=== PATIENT | female | born 1955 | race American Indian/Alaskan Native ===

== ENCOUNTER 2025-02-25 07:20 | Day surgery (SDC) | payer MEDICARE, MEDICAID, SELFPAY ==
[2025-02-24 11:43] VITALS: BMI 33.4
[2025-02-25] VITALS (14 sets, daily range): BP systolic 101–187; BP diastolic 68–102; PULSE 72–98; RESP 14–20; TEMP 36.2–36.7; O2SAT 93–100; BMI 32.3
[2025-02-25] MEDS: SODIUM CHLORIDE 0.9% 500 ML 500 ML 20 ML IV (09:22)
[2025-02-25] MEDS: BENZOCAINE 20% (Hurricaine) SPRAY 1 DOSE TOP (09:22)
[2025-02-25] MEDS: fentaNYL CIT INJ 50 mCg/ML AMP 2ML (ASD USE ONLY) IVP (09:37)
[2025-02-25] MEDS: LIDOCAINE JELLY 2% (Urojet) 10 ML TUBE TOP (09:37)
[2025-02-25] MEDS: MIDAZOLAM INJ 1 MG/ML VIAL 2 ML (ASD USE ONLY) 2 MG IVP (09:55)
== END 2025-02-25 11:13 | disposition home or self-care (01) ==
PROVIDERS: PCP Physician Assistant Medical; Referring Provider Specialist; Visit Provider Specialist
PROC: 0DBE8ZX Excision of Large Intestine, Via Natural or Artificial Opening Endoscopic, Diagnostic (ICD-10-PCS; CPT 45380; principal; 2025-02-25 09:00)
PROC: (CPT 43239; 2025-02-25 09:00)
DX: D12.2 Benign neoplasm of ascending colon (principal); R19.5 Other fecal abnormalities; D12.3 Benign neoplasm of transverse colon; D12.5 Benign neoplasm of sigmoid colon; K64.9 Unspecified hemorrhoids; K57.30 Diverticulosis of large intestine without perforation or abscess without bleeding; I10 Essential (primary) hypertension; Z79.899 Other long term (current) drug therapy
CPT/HCPCS: 45385; 45380; A4217; A4649; J1200; J2250; J3010; J7999; A9270